=== PATIENT | female | born 1975 | race Caucasian/White ===

== ENCOUNTER 2016-07-20 21:43 | Emergency (ER) | payer OTHER ==
[~2016-07-20] VITALS: Ht 167.6 cm; Wt 90.7 kg
[2016-07-20] MEDS ORDERED: SEROQUEL 25 MG25 M1 PO (21:59)
[2016-07-20] MEDS ORDERED: TOPAMAX 25 MG T25 M1 PO (22:00)
[2016-07-20] MEDS ORDERED: HYDROCODONE-AP1 EAC6 PO ×2 (22:00→22:09)
[2016-07-20] MEDS ORDERED: CYMBALTA30 MG PO (22:00)
[2016-07-20 23:20] VITALS: BP 132/76
== END 2016-07-20 23:21 | disposition home or self-care (01) ==
LOC: ER 21:43
DX: M54.31 Sciatica, right side (principal); K50.90 Crohn's disease, unspecified, without complications; G43.909 Migraine, unspecified, not intractable, without status migrainosus; F32.9 Major depressive disorder, single episode, unspecified; F17.210 Nicotine dependence, cigarettes, uncomplicated; Z88.1 Allergy status to other antibiotic agents; Z88.6 Allergy status to analgesic agent; Z88.8 Allergy status to other drugs, medicaments and biological substances